=== PATIENT | female | born 1940 | race Caucasian/White ===

== ENCOUNTER 2018-10-14 11:50 | Emergency (ER) | payer MEDICARE ==
[2018-10-14 12:30] LABS: HEMATOCRIT 36.2 % (36.0-47.0); HEMOGLOBIN 11.9 g/dL (12.0-15.5); MEAN CORPUSCULAR HGB CONC 32.8 g/dL (32.0-36.0); MEAN CORPUSCULAR VOLUME 91 fl (80-97); PLATELET COUNT 420 10^3/uL (150-450); RED BLOOD COUNT 3.97 10^6/uL (3.72-5.28); RED CELL DISTRIBUTION WIDTH 15.6 % (11.5-14.0)
[2018-10-14] MEDS ORDERED: IPRATROPIUM/ALBUTEROL 0.5-2.5 MG/3 ML AMPUL NEB ONE ×3 (12:36→17:13)
[2018-10-14 12:54] LABS: ALANINE AMINOTRANSFERASE 84 U/L (9-52); ALBUMIN 3.6 g/dL (3.5-5.0); ALKALINE PHOSPHATASE 221 U/L (38-126); ANION GAP 11 (5-19); ASPARTATE AMINO TRANSFERASE 97 U/L (14-36); BILIRUBIN,DIRECT 0.5 mg/dL (0.0-0.4); BILIRUBIN,TOTAL 0.6 mg/dL (0.2-1.3); BLOOD UREA NITROGEN 25 mg/dL (7-20); CARBON DIOXIDE 26 mmol/L (22-30); CHLORIDE 102 mmol/L (98-107); CREATINE KINASE 46 U/L (30-135); GLUCOSE 166 mg/dL (75-110); POTASSIUM 4.7 mmol/L (3.6-5.0); SODIUM 139.4 mmol/L (137-145); TOTAL PROTEIN 6.7 g/dL (6.3-8.2)
--- NOTE | 2018-10-14 13:04 | RADIOLOGY REPORT (SQ) ---
EXAM DESCRIPTION: CHEST SINGLE VIEW COMPLETED DATE/TIME: 10/14/2018 12:51 pm REASON FOR STUDY: bed t1 db COMPARISON: 04/07/2016. NUMBER OF VIEWS: One view. TECHNIQUE: Single frontal radiographic view of the chest acquired. LIMITATIONS: None. FINDINGS: LUNGS AND PLEURA: Lungs are hyperinflated, likely COPD. Haziness throughout the lung base s may largely related to overlying soft tissues. Mild interstitial edema is not excluded, although t here does not appear to be significant vascular congestion. MEDIASTINUM AND HILAR STRUCTURES: No masses. Contour normal. HEART AND VASCULAR STRUCTURES: Cardiomegaly is present. BONES: No acute findings. HARDWARE: None in the chest. OTHER: No other significant finding. IMPRESSION: Bibasilar diminished aeration. A component of edema may be present. TECHNICAL DOCUMENTATION: JOB ID: [id number] [employer]- All Rights Reserved Reading location - IP/workstation name: [email or web address]
[2018-10-14 13:06] LABS: TROPONIN I 0.024 ng/mL
[2018-10-14 13:07] LABS: ABSOLUTE LYMPHOCYTES# (MANUAL) 2.7 10^3/uL (0.5-4.7); ABSOLUTE MONOCYTES # (MANUAL) 1.7 10^3/uL (0.1-1.4); ABSOLUTE NEUTROPHILS# (MANUAL) 16.6 10^3/uL (1.7-8.2); ANISOCYTOSIS SLIGHT; BAND NEUTROPHILS % (MANUAL) 6 % (3-5); BASOPHILS % (MANUAL) 0 % (0-2); CREATINE KINASE MB 0.89 ng/mL (<4.55); EOSINOPHILS % (MANUAL) 0 % (0-6); HYPOCHROMASIA SLIGHT; LYMPHOCYTES % (MANUAL) 13 % (13-45); MONOCYTES % (MANUAL) 8 % (3-13); PLATELET COMMENT ADEQUATE; POLYCHROMASIA 1+; SEGMENTED NEUTROPHILS % (MAN) 73 % (42-78); TOTAL CELLS COUNTED 100; TOXIC GRANULATION 1+; TOXIC VACUOLATION PRESENT
--- NOTE | 2018-10-14 13:36 | EKG REPORT ---
SEVERITY:- ABNORMAL ECG - SINUS TACHYCARDIA MULTIPLE VENTRICULAR PREMATURE COMPLEXES ANTERIOR INFARCT, OLD : Confirmed by: Buddy Arana MD 14-Oct-2018 13:35:35
[2018-10-14] MEDS ORDERED: CEFTRIAXONE INJ 1000 MG VIAL IV ONE (15:15)
[2018-10-14] MEDS ORDERED: METHYLPREDNISOLONE INJ 125 MG/2 ML SDV IV ONE (15:16)
--- NOTE | 2018-10-14 15:27 | ER Document Report ---
ED General - General Chief Complaint: Breathing Difficulty Stated Complaint: SHORTNESS OF BREATH Time Seen by Provider: 10/14/18 12:19 Notes: Patient is a 77 year old female with end stage COPD in hospice care that presents to the emergency department for chief complaint of fall and shortness of breath. Patient reports that she lost her footing and she went down to the ground and landing on her buttocks as she was eased down by her to the ground, as a result she became short of breath and EMS was called. She normally is on 4L NC 10/06, but more recently has been bipap dependent at home. At this time she is currently on bipap and is feeling better, she complains of some pain around her tailbone she describes as an ache and a 2/10 at this time. Denies numbness, tingling or weakness in her lower extremities. She also denies having any chest pain, lightheadedness, recent fevers, nausea, vomiting, or abdominal pain. Past Medical History: end stage COPD, htn, CHF, hld, gerd Past Surgical History: cholecystectomy, tubal ligation Social History: current smoker, denies ETOH, or drug use Family History: Reviewed and noncontributory for presenting illness Allergies: Reviewed, see documented allergy list. REVIEW OF SYSTEMS: Other than noted above, the 12 point review of systems was reviewed with the patient and were negative, all pertinent findings are included in the HPI. PHYSICAL EXAMINATION: Vital signs reviewed, nursing noted reviewed. GENERAL: Chronically ill appearing female, in respiratory distress, on bipap HEAD: Atraumatic, normocephalic. EYES: Eyes appear normal, extraocular movements intact, sclera anicteric, conjunctiva are normal. ENT: nares patent, oropharynx clear without exudates. Moist mucous membranes. NECK: Normal range of motion, supple without lymphadenopathy LUNGS: Diffuse wheezing noted throughout all lung jonas, diminished lung sounds overall. Moderate respiratory distress on BIPAP HEART: Heart rate tachycardic, regular rhythm. ABDOMEN: Soft, obese, nontender, normoactive bowel sounds. No rebound, guarding , or rigidity. No masses appreciated. EXTREMITIES: Nontender, good range of motion, no peripheral edema noted. NEUROLOGICAL: No focal neurological deficits. Moves all extremities spontaneously Motor and sensory grossly intact on exam. Alert and oriented X 4. PSYCH: Normal mood, normal affect. SKIN: Warm, Dry, normal turgor, no rashes or lesions noted on exposed skin TRAVEL OUTSIDE OF THE [place] IN LAST 30 DAYS: No - Related Data Allergies/Adverse Reactions: diphenhydramine HCl [From Benadryl] Allergy (Mild, Verified 08/22/15 10:56) erythromycin base [Erythromycin Base] Allergy (Mild, Verified 08/22/15 10:56) propoxyphene [Propoxyphene] Allergy (Mild, Verified 08/22/15 10:56) codeine [Codeine] Allergy (Unknown, Verified 08/22/15 10:56) epinephrine [Epinephrine] Allergy (Unknown, Verified 08/22/15 10:56) atorvastatin calcium [From Lipitor] Adverse Reaction (Intermediate, Verified 22:12) Past Medical History - Social History Smoking Status: Current Every Day Smoker Frequency of alcohol use: None Drug Abuse: None Family History: Reviewed & Not Pertinent Patient has suicidal ideation: No Patient has homicidal ideation: No - Past Medical History Cardiac Medical History: Reports: Hx Congestive Heart Failure, Hx Hypertension Denies: Hx Atrial Fibrillation, Hx Coronary Artery Disease, Hx Heart Attack, Hx Hypercholesterolemia, Hx Peripheral Vascular Disease, Hx Pulmonary Embolism, Hx Heart Murmur Pulmonary Medical History: Reports: Hx Asthma, Hx Bronchitis, Hx COPD, Hx Pneumonia, Hx Respiratory Failure, Hx Sleep Apnea Denies: Hx Tuberculosis Neurological Medical History: Denies: Hx Cerebrovascular Accident, Hx Seizures Endocrine Medical History: Reports: Hx Diabetes Mellitus Type 2 Renal/ Medical History: Reports: Hx Kidney Stones. Denies: Hx End Stage Renal Disease, Hx Ovarian Cysts, Hx Peritoneal Dialysis, Hx Pelvic Inflammatory Disease Malignancy Medical History: Reports: Hx Breast Cancer - LEFT, Hx Skin Cancer. Denies: Hx Cervical Cancer, Hx Lung Cancer, Hx Ovarian Cancer GI Medical History: Reports: Hx Gastroesophageal Reflux Disease, Hx Ulcer. Denies: Hx Crohn's Disease, Hx Irritable Bowel, Hx Liver Failure, Hx Pancreatitis Musculoskeletal Medical History: Denies Hx Arthritis, Reports Hx Fibromyalgia, Denies Hx Muscular Dystrophy Psychiatric Medical History: Reports: Hx Depression Denies: Hx Bipolar Disorder, Hx Post Traumatic Stress Disorder, Hx Schizophrenia Traumatic Medical History: Denies: Hx Fractures Past Surgical History: Reports: Hx Cholecystectomy, Hx Mastectomy - Left, Hx Tubal Ligation. Denies: Hx Colostomy, Hx Pacemaker - Immunizations Hx Diphtheria, Pertussis, Tetanus Vaccination: No Hx Pneumococcal Vaccination: 11/18/09 Physical Exam - Vital signs Vitals: Resp Pulse Ox 40 H 90 L 10/14/18 11:58 10/14/18 11:58 Course - Re-evaluation Re-evalutation: Patient seen and examined vital signs reviewed. Laboratory data and imaging were ordered as appropriate for the patient's presenting symptoms and complaint, with consideration of any critical or life threatening conditions that may be associated with their obtained history and exam as noted above. Patient was treated with duoneb breathing treatments and IV solumedrol Results were reviewed when available and demonstrated leukocytosis, and CXR with possible pulmonary edema, although BNP was normal, she is on diuretics at home. Her clinical picture however was most consistent with acute on chronic COPD exacerbation. Her troponin was indeterminate, but similar to prior troponin levels for this patient, and I am not concerned for NSTEMI at this time. The patient was re-evaluated and was improved after being on bipap, and was removed from bipap onto 4L NC and was tolerating this from a respiratory standpoint. Evaluation was most consistent with acute on chronic respiratory failure and pneumonia. I discussed resulted and prognosis with the patient and the patients family who was at bedside extensively. She is currently under hospice care at home, and has been bipap dependent. To further understand her goals of care I took my time explaining her current prognosis given end stage COPD, and that she would not likely do well if she went into respiratory or cardiac arrest and that intubation would not likely prolong her life. She agreed and voiced that she would like to "go in God's arms" her family at bedside affirmed that this has been her wishes. I further explained that it would mean that even if she was discharged today it is possible she could even in the ride in the ambulance back to her house or even tonight, she acknowledged this as well and states that she was "okay if I today." I did offer admission to the patient as well for more aggressive treatment of her current condition, of which she declined, stating she would rather be home. After completing this conversation with the patient's permission I completed a DNR form and order, and showed this form to the patient and family again explaining what this means , and they were all in agreement that this was the patients wishes. I then handed this form to EMS personnel. I did prescribe the patient prednisone 60mg daily for 5 days, and cefdinir 300mg for 10 days to treat a likely underlying pneumonia. At this point the patient was discharged with EMS to home, on 4L NC at 88-89% spO2 which is acceptable given her advanced COPD. *Note is created using voice recognition software and may contain spelling, syntax or grammatical errors. Laboratory 10/14/18 10/14/18 10/14/18 12:16 12:16 12:16 WBC 21.0 H RBC 3.97 Hgb 11.9 L Hct 36.2 MCV 91 MCH 30.0 MCHC 32.8 RDW 15.6 H Plt Count 420 Total Counted 100 Seg Neutrophils % Not Reportable Seg Neuts % (Manual) 73 Band Neutrophils % 6 H Lymphocytes % Not Reportable Lymphocytes % (Manual) 13 Monocytes % Not Reportable Monocytes % (Manual) 8 Eosinophils % Not Reportable Eosinophils % (Manual) 0 Basophils % Not Reportable Basophils % (Manual) 0 Absolute Neutrophils Not Reportable Abs Neuts (Manual) 16.6 H Absolute Lymphocytes Not Reportable Abs Lymphs (Manual) 2.7 Absolute Monocytes Not Reportable Abs Monocytes (Manual) 1.7 H Absolute Eosinophils Not Reportable Absolute Eos (Manual) 0.0 Absolute Basophils Not Reportable Abs Basophils (Manual) 0.0 Toxic Granulation 1+ Toxic Vacuolation PRESENT Platelet Comment ADEQUATE Polychromasia 1+ Hypochromasia SLIGHT Anisocytosis SLIGHT Sodium 139.4 Potassium 4.7 Chloride 102 Carbon Dioxide 26 Anion Gap 11 BUN 25 H Creatinine 1.38 H Est GFR ( Amer) 45 L Est GFR (Non-Af Amer) 37 L Glucose 166 H Calcium 9.0 Total Bilirubin 0.6 Direct Bilirubin 0.5 H Neonat Total Bilirubin Not Reportable Neonat Direct Bilirubin Not Reportable Neonat Indirect Bili Not Reportable AST 97 H ALT 84 H Alkaline Phosphatase 221 H Creatine Kinase 46 CK-MB (CK-2) 0.89 Troponin I 0.024 NT-Pro-B Natriuret Pep Total Protein 6.7 Albumin 3.6 Urine Color Urine Appearance Urine pH Ur Specific [place] Urine Protein Urine Glucose (UA) Urine Ketones Urine Blood Urine Nitrite Urine Bilirubin Urine Urobilinogen Ur Leukocyte Esterase Urine WBC (Auto) Urine RBC (Auto) U Hyaline Cast (Auto) Urine Bacteria (Auto) Urine Red Cell Clumps Urine WBC Clumps Squamous Epi Cells Auto U Non-Squamous Epis Auto Calcium Carbonate Cryst Calcium Phosphate Cryst Calcium Oxalate Cr Auto Leucine Crystals Cystine Crystals Uric Acid Cryst (Auto) Triple Phos Cryst (Auto) Tyrosine Crystals Amorphous Sediment Auto Cellular Casts Epithelial Casts (Auto) Fatty Casts Granular Casts (Auto) Waxy Casts (Auto) Broad Casts RBC Casts (Auto) WBC Casts (Auto) Urine Mucus (Auto) U Trichomonas (Auto) Ur Yeast w Hyphae Urine Yeast (Budding) Urine Ascorbic Acid 10/14/18 10/14/18 12:16 12:55 WBC RBC Hgb Hct MCV MCH MCHC RDW Plt Count Total Counted Seg Neutrophils % Seg Neuts % (Manual) Band Neutrophils % Lymphocytes % Lymphocytes % (Manual) Monocytes % Monocytes % (Manual) Eosinophils % Eosinophils % (Manual) Basophils % Basophils % (Manual) Absolute Neutrophils Abs Neuts (Manual) Absolute Lymphocytes Abs Lymphs (Manual) Absolute Monocytes Abs Monocytes (Manual) Absolute Eosinophils Absolute Eos (Manual) Absolute Basophils Abs Basophils (Manual) Toxic Granulation Toxic Vacuolation Platelet Comment Polychromasia Hypochromasia Anisocytosis Sodium Potassium Chloride Carbon Dioxide Anion Gap BUN Creatinine Est GFR ( Amer) Est GFR (Non-Af Amer) Glucose Calcium Total Bilirubin Direct Bilirubin Neonat Total Bilirubin Neonat Direct Bilirubin Neonat Indirect Bili AST ALT Alkaline Phosphatase Creatine Kinase CK-MB (CK-2) Troponin I NT-Pro-B Natriuret Pep 366 Total Protein Albumin Urine Color Cancelled Urine Appearance Cancelled Urine pH Cancelled Ur Specific [place] Cancelled Urine Protein Cancelled Urine Glucose (UA) Cancelled Urine Ketones Cancelled Urine Blood Cancelled Urine Nitrite Cancelled Urine Bilirubin Cancelled Urine Urobilinogen Cancelled Ur Leukocyte Esterase Cancelled Urine WBC (Auto) Cancelled Urine RBC (Auto) Cancelled U Hyaline Cast (Auto) Cancelled Urine Bacteria (Auto) Cancelled Urine Red Cell Clumps Cancelled Urine WBC Clumps Cancelled Squamous Epi Cells Auto Cancelled U Non-Squamous Epis Auto Cancelled Calcium Carbonate Cryst Cancelled Calcium Phosphate Cryst Cancelled Calcium Oxalate Cr Auto Cancelled Leucine Crystals Cancelled Cystine Crystals Cancelled Uric Acid Cryst (Auto) Cancelled Triple Phos Cryst (Auto) Cancelled Tyrosine Crystals Cancelled Amorphous Sediment Auto Cancelled Cellular Casts Cancelled Epithelial Casts (Auto) Cancelled Fatty Casts Cancelled Granular Casts (Auto) Cancelled Waxy Casts (Auto) Cancelled Broad Casts Cancelled RBC Casts (Auto) Cancelled WBC Casts (Auto) Cancelled Urine Mucus (Auto) Cancelled U Trichomonas (Auto) Cancelled Ur Yeast w Hyphae Cancelled Urine Yeast (Budding) Cancelled Urine Ascorbic Acid Cancelled - Vital Signs Vital signs: Temp Pulse Resp BP Pulse Ox 99.1 F 27 H 147/77 H 88 L 10/14/18 17:42 10/14/18 17:42 10/14/18 17:42 10/14/18 17:42 - Laboratory Result Diagrams: 10/14/18 12:16 10/14/18 12:16 Laboratory results interpreted by me: 10/14/18 10/14/18 12:16 12:16 WBC 21.0 H Hgb 11.9 L RDW 15.6 H Band Neutrophils % 6 H Abs Neuts (Manual) 16.6 H Abs Monocytes (Manual) 1.7 H BUN 25 H Creatinine 1.38 H Est GFR ( Amer) 45 L Est GFR (Non-Af Amer) 37 L Glucose 166 H Direct Bilirubin 0.5 H AST 97 H ALT 84 H Alkaline Phosphatase 221 H - EKG Interpretation by Me Additional EKG results interpreted by me: EKG demonstrates sinus tachycardia with a ventricular rate of 109 bpm, normal axis, QTC 442 ms, there are occasional PVCs noted on this EKG, no evidence of acute ischemia. This is compared with prior EKG from 03/28/2016. Critical Care Note - Critical Care Note Total time excluding time spent on procedures (mins): 107 Comments: Critical care time 107 minutes exclusive from separate billable procedures for a patient requiring complex medical decision making, and high potential for clinical deterioration. In a patient with acute on chronic respiratory failure requiring NIPPV, and extensive conversion regarding code status, goals of care, disposition with the patient and the patients family. Time spent obtaining history from patient or surrogate, discussions with consultants, development of treatment plan with patient or surrogate, evaluation of patient's response to treatment, examination of patient, ordering and performing treatments and interventions, ordering and review of laboratory studies, re-evaluation of patient's condition, ordering and review of radiographic studies and review of old charts Discharge - Discharge Clinical Impression: Renal insufficiency, mild Acute and chronic respiratory failure Qualifiers: Respiratory failure complication: hypoxia Qualified Code(s): J96.21 - Acute and chronic respiratory failure with hypoxia Pneumonia Qualifiers: Pneumonia type: due to unspecified organism Laterality: unspecified laterality Lung location: unspecified part of lung Qualified Code(s): J18.9 - Pneumonia, unspecified organism Leukocytosis Qualifiers: Leukocytosis type: unspecified Qualified Code(s): D72.829 - Elevated white blood cell count, unspecified Condition: Fair Disposition: HOME, SELF-CARE Instructions: Chronic Obstructive Lung Disease ([facility]) Additional Instructions: If you do have concern, he can always come back to the emergency department, please call [phone], if otherwise please take the medications prescribed, and follow -up with your primary care physician, if you need adjustments to your BiPAP. Prescriptions: Cefdinir 300 mg PO BID #20 capsule Prednisone [Deltasone 20 mg Tablet] 3 tab PO DAILY 5 Days #15 tablet Referrals: MEKA QUIÑONEZ MD [ACTIVE STAFF] - Follow up in 3-5 days
[2018-10-14 17:52] VITALS: BP 147/77
== END 2018-10-14 17:51 | disposition home or self-care (01) ==
LOC: ER 11:50
DX: N28.9 Disorder of kidney and ureter, unspecified (principal); J96.21 Acute and chronic respiratory failure with hypoxia; J18.9 Pneumonia, unspecified organism; D72.829 Elevated white blood cell count, unspecified; S39.92XA Unspecified injury of lower back, initial encounter; W01.0XXA Fall on same level from slipping, tripping and stumbling without subsequent striking against object, initial encounter; F17.200 Nicotine dependence, unspecified, uncomplicated; I50.9 Heart failure, unspecified; I11.0 Hypertensive heart disease with heart failure; J44.9 Chronic obstructive pulmonary disease, unspecified; E11.9 Type 2 diabetes mellitus without complications; Z87.442 Personal history of urinary calculi; Z85.3 Personal history of malignant neoplasm of breast; Z85.828 Personal history of other malignant neoplasm of skin; Z90.49 Acquired absence of other specified parts of digestive tract; Z98.51 Tubal ligation status; Z90.12 Acquired absence of left breast and nipple; Z88.3 Allergy status to other anti-infective agents
CPT/HCPCS: 93005; 94640 ×2; 99291; 99292; 96375; 96365; 36415; 82553; 82550; 85025; 80053; 84484; 83880; 71045; 93010; 94660; J2930; J0696; A9270; J7620